=== PATIENT | male | born 1960 | race Caucasian/White ===

== ENCOUNTER 2022-11-25 19:55 | Outpatient (OUT) | payer OTHER, SELFPAY | END 2022-11-25 19:56 | disposition home or self-care (01) | LOC: SLEEP 19:56 | PROVIDERS: PCP Psychiatry & Neurology Neurology; Visit Provider Psychiatry & Neurology Neurology | DX: G47.33 Obstructive sleep apnea (adult) (pediatric) (principal); E11.9 Type 2 diabetes mellitus without complications | CPT/HCPCS: 95811 ==